=== PATIENT | female | born 1965 | race Caucasian/White ===

== ENCOUNTER 2021-08-30 05:41 | Emergency (ER) | payer OTHER ==
[2021-08-30] MEDS ORDERED: Clindamycin 150 MG CAP ONE (06:08)
[2021-08-30] MEDS ORDERED: Acetaminophen 500 MG TAB ONE (06:09)
== END 2021-08-30 06:17 | disposition home or self-care (01) ==
LOC: MADERS 05:41
DX: K02.9 Dental caries, unspecified (principal); I10 Essential (primary) hypertension
CPT/HCPCS: 99282